=== PATIENT | male | born 1950 | race African-American/Black ===

== ENCOUNTER 2017-06-08 14:55 | Emergency (ER) | payer MEDICARE, MEDICAID ==
[~2017-06-08] VITALS: Ht 177.8 cm; Wt 95.0 kg
[2017-06-08 16:39] VITALS: BP 117/64
[2017-06-08 17:29] LABS: ASPARTATE AMINO TRANSFERASE 13 U/L (15-37); BLOOD UREA NITROGEN 52 mg/dL (7-18)
[2017-06-08 17:34] LABS: HEMATOCRIT 33.2 % (39.2-51.8); HEMOGLOBIN 10.7 g/dL (13.7-18.0); WHITE BLOOD COUNT 4.8 x10^3/uL (3.4-10)
== END 2017-06-08 18:24 | disposition home or self-care (01) ==
LOC: ED 18:15
DX: K59.00 Constipation, unspecified (principal); N18.9 Chronic kidney disease, unspecified; I50.9 Heart failure, unspecified; Z86.73 Personal history of transient ischemic attack (TIA), and cerebral infarction without residual deficits; F17.200 Nicotine dependence, unspecified, uncomplicated
CPT/HCPCS: 36415; 74020; 80053; 83690; 85025; 99285

== ENCOUNTER 2017-06-09 14:43 | Emergency (ER) | payer MEDICARE, MEDICAID ==
[~2017-06-09] VITALS: Ht 175.3 cm; Wt 91.0 kg
[2017-06-09] MEDS ORDERED: MAALOX/HYOSCYAMINE/LIDOCAINE 45 ML BTL ONE (15:55)
[2017-06-09 16:03] LABS: HEMATOCRIT 33.4 % (39.2-51.8); HEMOGLOBIN 10.9 g/dL (13.7-18.0); WHITE BLOOD COUNT 5.6 x10^3/uL (3.4-10)
[2017-06-09 16:38] VITALS: BP 124/83
[2017-06-09] MEDS ORDERED: MAALOX/HYOSCYAMINE/LIDOCAINE 45 ML BTL PO ONE (17:00)
== END 2017-06-09 16:40 | disposition home or self-care (01) ==
LOC: ED 15:43
DX: K62.5 Hemorrhage of anus and rectum (principal); K64.8 Other hemorrhoids; K59.00 Constipation, unspecified; Z86.73 Personal history of transient ischemic attack (TIA), and cerebral infarction without residual deficits; F17.200 Nicotine dependence, unspecified, uncomplicated
CPT/HCPCS: 36415; 85025; 99283; 99284

== ENCOUNTER → 2018-07-15 | Outpatient (CLI) | payer MEDICARE, MEDICAID | END | disposition home or self-care (01) | LOC: CVU 08:47 | PROVIDERS: ATTEND Family Medicine | DX: I65.21 Occlusion and stenosis of right carotid artery (principal); I11.0 Hypertensive heart disease with heart failure; I50.9 Heart failure, unspecified; I25.10 Atherosclerotic heart disease of native coronary artery without angina pectoris | CPT/HCPCS: 93922; 93926; 93971 ==

== ENCOUNTER 2018-09-06 13:52 | Emergency (ER) | payer MEDICARE, MEDICAID ==
[~2018-09-06] VITALS: Ht 175.3 cm; Wt 92.7 kg
[2018-09-06 14:41] LABS: ALANINE AMINOTRANSFERASE 13 U/L (12-78); ALBUMIN 3.4 g/dL (3.4-5.0); ANION GAP 5 mmol/L (5-15); CHLORIDE 97 mmol/L (98-107)
--- NOTE | 2018-09-06 14:42 | NUR ---
TO ROOM FROM LOBBY. NAD.
[2018-09-06 14:43] LABS: ALKALINE PHOSPHATASE 69 U/L (45-117); BILIRUBIN,TOTAL 0.3 mg/dL (0.2-1.0); TOTAL PROTEIN 8.5 g/dL (6.4-8.2)
--- NOTE | 2018-09-06 15:10 | NUR ---
FIRST CONTACT WITH PT. Pt c/o constipation since 08/28/18. Pt states, "I have vomitted dark stuff, it looked like stuff I couldn't get out through my bowels. I have only been able to drink chicken broth." ALKAN. Pt resting on gurney. Pt connected to all monitors. All safety measures in place. No needs expressed at this time. Call light within reach.
[2018-09-06 15:23] LABS: BASOPHILS # (AUTO) 0.06 x10^3/uL (0-0.1); BASOPHILS % (AUTO) 1 % (0-1); EOSINOPHILS # (AUTO) 0.15 x10^3/uL (0-0.4); EOSINOPHILS % (AUTO) 2 % (1-7); LYMPHOCYTES # (AUTO) 2.06 x10^3/uL (1-3.4); LYMPHOCYTES % (AUTO) 27 % (22-44); MD SCAN; MEAN CORPUSCULAR HEMOGLOBIN 30.5 pg (27.5-34.5); MEAN CORPUSCULAR HGB CONC 32.7 g/dL (33.2-36.2); MEAN CORPUSCULAR VOLUME 93.1 fL (81-97); MEAN PLATELET VOLUME 8.5 fL (7.4-10.4); MONOCYTES # (AUTO) 0.85 x10^3/uL (0.2-0.8); MONOCYTES % (AUTO) 11 % (2-9); NEUTROPHILS # (AUTO) 4.45 x10^3/uL (1.8-6.8); NEUTROPHILS % (AUTO) 59 % (42-75); PLATELET COUNT 239 x10^3/uL (130-400); RED BLOOD COUNT 4.03 x10^6/uL (4.38-5.82); RED CELL DISTRIBUTION WIDTH 14.1 % (9.4-14.8)
[2018-09-06] MEDS ORDERED: ONDANSETRON 2MG/ML, 2ML IVPush ONE (17:00)
[2018-09-06] MEDS ORDERED: HYDROmorphone 2 MG/ML, 1ML IVPush PRN (17:00)
[2018-09-06] MEDS ORDERED: SODIUM CHLORIDE 0.9% 1,000ML IVBOLUS ONE (17:00)
[2018-09-06] MEDS ORDERED: ONDANSETRON 2MG/ML, 2ML ONE (17:11)
[2018-09-06] MEDS ORDERED: HYDROmorphone 1 MG/ML, 1ML ONE (17:12)
--- NOTE | 2018-09-06 17:30 | NUR ---
Pain meds provided per EMAR. PIV fluids infusing per EMAR. Pt transported to CT on [facility].
--- NOTE | 2018-09-06 17:46 | NUR ---
Pt transported back to ED room from CT on [facility].
--- NOTE | 2018-09-06 18:19 | NUR ---
Provided Fleets Enema per ED MD order. Pt tolerated med administration with out complications.
--- NOTE | 2018-09-06 18:43 | NUR ---
Pt ambulated to restroom with steady gait and balance. Pt had one large bowel movement. Pt states, "I feel a little relief, but I may need another enema later." Pt requests orange juice and water. EDMS approves. Provided pt with orange juice and water. Pt appreciative. Pt connected to all monitors. NADN. Pt watching TV. All safety measures in place. No other needs requested at this time.
[2018-09-06] MEDS ORDERED: MELO7.5T31 PO (18:48)
[2018-09-06] MEDS ORDERED: gabapentin PO (18:48)
[2018-09-06] MEDS ORDERED: CHOL2000 PO (18:48)
[2018-09-06] MEDS ORDERED: ATOR20TA37 PO (18:48)
[2018-09-06] MEDS ORDERED: TORS5TAB4 PO (18:48)
[2018-09-06] MEDS ORDERED: ASPI325T17 PO (18:48)
--- NOTE | 2018-09-06 19:08 | NUR ---
Provided bedside report to SUZETTE Pringle. All questions answered. SUZETTE Pringle to assume care of pt.
[2018-09-06 19:28] VITALS: BP 116/71
== END 2018-09-06 19:30 | disposition home or self-care (01) ==
LOC: ED 17:04
DX: K59.00 Constipation, unspecified (principal); R10.84 Generalized abdominal pain; N18.9 Chronic kidney disease, unspecified; I50.9 Heart failure, unspecified; Z86.73 Personal history of transient ischemic attack (TIA), and cerebral infarction without residual deficits; F17.200 Nicotine dependence, unspecified, uncomplicated
CPT/HCPCS: 36415; 74021; 74176; 80053; 83690; 85025; 96361; 96374; 96375; 99284; J1170; J2405; J7030

== ENCOUNTER → 2018-09-17 | Outpatient (CLI) | payer MEDICARE, MEDICAID ==
[~2018-09-17] MED LIST: ASPI325T17 PO; ATOR20TA37 PO; CHOL2000 PO; MELO7.5T31 PO; TORS5TAB4 PO; gabapentin PO
== END | disposition home or self-care (01) ==
LOC: RAD 14:13
PROVIDERS: ATTEND Internal Medicine Gastroenterology
DX: K59.00 Constipation, unspecified (principal)
CPT/HCPCS: 74018

== ENCOUNTER 2019-02-14 10:18 | Outpatient (CLI) | payer OTHER, MEDICAID | END 2019-02-14 23:59 | disposition home or self-care (01) | LOC: CFH 10:18 | PROVIDERS: ATTEND Licensed Practical Nurse | DX: F17.200 Nicotine dependence, unspecified, uncomplicated (principal) | CPT/HCPCS: 76706 ==

== ENCOUNTER 2020-10-03 13:30 | Emergency (ER) | payer MEDICARE, MEDICAID ==
[~2020-10-03] VITALS: Ht 177.8 cm; Wt 105.1 kg
--- NOTE | 2020-10-03 14:19 | NUR ---
front desk coordinator: pt from lobby to room 8
[2020-10-03] MEDS ORDERED: ASPI-963 PO (14:49)
[2020-10-03] MEDS ORDERED: SODIUM CHLORIDE FLUSH 10ML SYR IVF ONE (15:00)
[2020-10-03] MEDS ORDERED: SODIUM CHLORIDE 0.9% 1,000ML IVBOLUS ONE (15:00)
[2020-10-03 15:15] LABS: BASOPHILS % (AUTO) 1 % (0-1); EOSINOPHILS % (AUTO) 2 % (1-7); LYMPHOCYTES % (AUTO) 48 % (22-44); MEAN CORPUSCULAR HEMOGLOBIN 30.6 pg (27.5-34.5); MEAN CORPUSCULAR HGB CONC 32.8 g/dL (33.2-36.2); MEAN PLATELET VOLUME 9.4 fL (7.4-10.4); MONOCYTES % (AUTO) 11 % (2-9); NEUTROPHILS % (AUTO) 38 % (42-75); PLATELET COUNT 155 x10^3/uL (130-400); RED BLOOD COUNT 4.37 x10^6/uL (4.38-5.82); RED CELL DISTRIBUTION WIDTH 14.4 % (9.4-14.8)
[2020-10-03 15:19] LABS: MD NO
[2020-10-03 15:25] LABS: ALBUMIN 3.8 g/dL (3.4-5.0); ANION GAP 4 mmol/L (5-15); CALCIUM 8.7 mg/dL (8.5-10.1); CHLORIDE 107 mmol/L (98-107); CREATININE 2.27 mg/dL (0.7-1.3)
--- NOTE | 2020-10-03 15:32 | NUR ---
IV bolus running without issue to new IV start site. Report given to SUZETTE Singh for meal break.
--- NOTE | 2020-10-03 15:34 | NUR ---
BREAK RN-URINE COLLECTED AND SENT TO LAB.
[2020-10-03 15:54] LABS: MICROSCOPIC NOT IND
--- NOTE | 2020-10-03 16:10 | NUR ---
Report received from SUZETTE Singh and care reassumed. Lab results reviewed and chart marked for recheck. IV bolus still infusing at this time.
[2020-10-03 17:24] VITALS: BP 113/80
== END 2020-10-03 17:26 | disposition home or self-care (01) ==
LOC: ED 16:47
DX: I13.0 Hypertensive heart and chronic kidney disease with heart failure and stage 1 through stage 4 chronic kidney disease, or unspecified chronic kidney disease (principal); N18.2 Chronic kidney disease, stage 2 (mild); I50.9 Heart failure, unspecified; E86.0 Dehydration; R19.7 Diarrhea, unspecified; I25.2 Old myocardial infarction; Z86.73 Personal history of transient ischemic attack (TIA), and cerebral infarction without residual deficits; Z88.1 Allergy status to other antibiotic agents; Z88.0 Allergy status to penicillin
CPT/HCPCS: 36415; 80048; 81003; 82040; 85025; 96360; 99283; J7030

== ENCOUNTER 2020-10-09 14:56 | Emergency (ER) | payer MEDICARE, MEDICAID ==
[~2020-10-09] VITALS: Ht 175.3 cm; Wt 105.0 kg
[~2020-10-09 14:56] MED LIST changes: +ASPI-963 PO
--- NOTE | 2020-10-09 15:15 | NUR ---
PT HAS CO ABDOMINAL PAIN W HISTORY OF SAME LAST WEEK. DENIES N/V. DENIES CP. DENIES DIFFICULTY URINATING.
[2020-10-09] MEDS ORDERED: FAMOTIDINE 20 MG TABLET ONE (15:25)
[2020-10-09] MEDS ORDERED: FAMOTIDINE 20 MG TABLET PO ONE (15:30)
[2020-10-09 15:38] LABS: BASOPHILS % (AUTO) 1 % (0-1); EOSINOPHILS % (AUTO) 2 % (1-7); LYMPHOCYTES % (AUTO) 44 % (22-44); MEAN CORPUSCULAR HEMOGLOBIN 30.6 pg (27.5-34.5); MEAN CORPUSCULAR HGB CONC 33.2 g/dL (33.2-36.2); MEAN PLATELET VOLUME 9.4 fL (7.4-10.4); MONOCYTES % (AUTO) 12 % (2-9); NEUTROPHILS % (AUTO) 41 % (42-75); PLATELET COUNT 170 x10^3/uL (130-400); RED BLOOD COUNT 4.36 x10^6/uL (4.38-5.82); RED CELL DISTRIBUTION WIDTH 14.6 % (9.4-14.8)
[2020-10-09 15:41] LABS: MD NO
[2020-10-09 15:47] LABS: ALANINE AMINOTRANSFERASE 38 U/L (12-78); ALBUMIN 4.1 g/dL (3.4-5.0); ANION GAP 7 mmol/L (5-15); CALCIUM 9.2 mg/dL (8.5-10.1); CHLORIDE 109 mmol/L (98-107); CREATININE 1.56 mg/dL (0.7-1.3)
[2020-10-09 15:49] LABS: ALKALINE PHOSPHATASE 59 U/L (45-117); BILIRUBIN,TOTAL 0.4 mg/dL (0.2-1.0)
[2020-10-09 16:50] LABS: MICROSCOPIC AUTO
[2020-10-09 17:47] VITALS: BP 125/76
--- NOTE | 2020-10-09 17:47 | NUR ---
Patient/Caregiver given discharge instructions and they have confirmed that they understand the instructions. Patient ambulatory with steady gait.
== END 2020-10-09 17:49 | disposition home or self-care (01) ==
LOC: ED 17:43
DX: I13.0 Hypertensive heart and chronic kidney disease with heart failure and stage 1 through stage 4 chronic kidney disease, or unspecified chronic kidney disease (principal); N18.9 Chronic kidney disease, unspecified; L29.9 Pruritus, unspecified; R19.7 Diarrhea, unspecified; R30.0 Dysuria; Z86.73 Personal history of transient ischemic attack (TIA), and cerebral infarction without residual deficits
CPT/HCPCS: 36415; 80053; 81001; 85025; 86592; 99283; Q0177

== ENCOUNTER 2021-03-19 08:00 | Emergency (ER) | payer MEDICARE, MEDICAID ==
[~2021-03-19] VITALS: Ht 175.3 cm; Wt 102.9 kg
--- NOTE | 2021-03-19 08:49 | NUR ---
XRAY BEDSIDE. URINE COLLECTED AND SENT TO LAB.
--- NOTE | 2021-03-19 08:56 | NUR ---
PT C/O DRY SKIN, WEAKNESS, AND LOWER BACK PAIN WITH MOVEMENT. SYMPTOMS HAVE BEEN OFF AND ON OVER THE LAST MONTH.
[2021-03-19 08:58] LABS: MICROSCOPIC NOT IND
[2021-03-19 08:59] LABS: BASOPHILS % (AUTO) 1 % (0-1); EOSINOPHILS % (AUTO) 5 % (1-7); LYMPHOCYTES % (AUTO) 48 % (22-44); MEAN CORPUSCULAR HEMOGLOBIN 29.7 pg (27.5-34.5); MEAN CORPUSCULAR HGB CONC 32.8 g/dL (33.2-36.2); MEAN PLATELET VOLUME 9.1 fL (7.4-10.4); MONOCYTES % (AUTO) 14 % (2-9); NEUTROPHILS % (AUTO) 32 % (42-75); PLATELET COUNT 152 x10^3/uL (130-400); RED BLOOD COUNT 4.39 x10^6/uL (4.38-5.82); RED CELL DISTRIBUTION WIDTH 14.7 % (9.4-14.8)
[2021-03-19 09:08] LABS: ALANINE AMINOTRANSFERASE 34 U/L (12-78); ALBUMIN 3.5 g/dL (3.4-5.0); CALCIUM 9.1 mg/dL (8.5-10.1); CREATININE 1.92 mg/dL (0.7-1.3)
[2021-03-19 09:12] LABS: ALKALINE PHOSPHATASE 56 U/L (45-117); BILIRUBIN,TOTAL 0.3 mg/dL (0.2-1.0); T4 (THYROXINE) 8.5 mcg/dL (4.5-12.1); TOTAL PROTEIN 7.4 g/dL (6.4-8.2); TROPONIN I < 0.015 ng/mL (0.000-0.045)
[2021-03-19 09:21] LABS: ANION GAP 6 mmol/L (5-15); CHLORIDE 105 mmol/L (98-107)
--- NOTE | 2021-03-19 09:32 | NUR ---
PT RESTING ON ED GURNEY, WATCHING TV. NAD. VSS. RAILS UP AND CALL LIGHT WITHIN REACH.
[2021-03-19 11:07] VITALS: BP 127/85
--- NOTE | 2021-03-19 11:08 | NUR ---
PT REC'VD DISCHARGE INSTRUCTIONS AND EDUCATION. PT HAD NO FURTHER QUESTIONS. PT AMBUALTED WITH CANE TO DC AREA, STEADY GAIT.
== END 2021-03-19 11:25 | disposition home or self-care (01) ==
LOC: ED 09:21
DX: R53.1 Weakness (principal); R94.31 Abnormal electrocardiogram [ECG] [EKG]; I25.2 Old myocardial infarction; I11.0 Hypertensive heart disease with heart failure; I50.9 Heart failure, unspecified; F17.200 Nicotine dependence, unspecified, uncomplicated; J44.9 Chronic obstructive pulmonary disease, unspecified; Z86.73 Personal history of transient ischemic attack (TIA), and cerebral infarction without residual deficits
CPT/HCPCS: 36415; 71045; 80053; 81003; 83880; 84436; 84443; 84484; 85025; 93005; 99285